=== PATIENT | female | born 1950 | race Caucasian/White ===

== ENCOUNTER → 2018-03-11 | Outpatient (CLI) | payer OTHER, MEDICARE ==
[~2018-03-11] MED LIST: IOPAMIDOL (ISOVUE 370) 100 ML BTL IV ONE
== END ==
LOC: FIMAGING 09:18
PROVIDERS: ATTEND Surgery
DX: K46.9 Unspecified abdominal hernia without obstruction or gangrene (principal); N28.1 Cyst of kidney, acquired
CPT/HCPCS: 74177; Q9967; 82565-PO

== ENCOUNTER 2018-04-11 13:10 | Observation (INO) | payer OTHER, MEDICARE | END 2018-04-12 13:41 | disposition home or self-care (01) | LOC: F3E 13:10 ==

== ENCOUNTER → 2018-05-06 | Outpatient (CLI) | payer OTHER, MEDICARE | LOC: FIMAGING 10:01 | PROVIDERS: ATTEND Surgery | DX: R92.8 Other abnormal and inconclusive findings on diagnostic imaging of breast (principal); K43.2 Incisional hernia without obstruction or gangrene; Z98.1 Arthrodesis status ==